=== PATIENT | male | born 1990 | race Caucasian/White ===

== ENCOUNTER 2021-12-02 00:30 | Inpatient (IN) | payer MEDICAID, OTHER ==
--- NOTE | 2021-12-02 01:04 | ED ---
General Adult HPI - General Chief complaint: Psychiatric Symptoms Stated complaint: Mental Health Time Seen by Provider: 12/02/21 00:34 Source: patient, police, EMS, RN notes reviewed, old records reviewed Mode of arrival: EMS Limitations: no limitations - History of Present Illness Initial comments: 30-year-old male presenting with suicide attempt. Patient had been feeling down and depressed, he been anxious and feeling suicidal. He cut his left arm. He was transported by local police and paramedics. He has been petitioned for psychiatric evaluation. He denies illicit drugs or alcohol. He states he has had multiple previous episodes of self-harm. He states his tetanus is up-to-date. - Related Data Allergies Allergy/AdvReac Type Severity Reaction Status Date / Time No Known Allergies Allergy Verified 12/02/21 00:53 Review of Systems ROS Statement: Those systems with pertinent positive or pertinent negative responses have been documented in the HPI. ROS Other: All systems not noted in ROS Statement are negative. Past Medical History Past Medical History: No Reported History History of Any Multi-Drug Resistant Organisms: None Reported Additional Past Surgical History / Comment(s): Pt has had multiple surgeries to repair arterial lacerations Past Psychological History: Anxiety, Bipolar Smoking Status: Current some day smoker Past Alcohol Use History: None Reported Past Drug Use History: Marijuana General Exam Limitations: no limitations General appearance: alert, in no apparent distress Head exam: Present: atraumatic, normocephalic Eye exam: Present: normal appearance, PERRL ENT exam: Present: normal exam Neck exam: Present: normal inspection Respiratory exam: Present: normal lung sounds bilaterally. Absent: respiratory distress, wheezes Cardiovascular Exam: Present: regular rate, normal rhythm GI/Abdominal exam: Present: soft. Absent: distended, tenderness Extremities exam: Present: normal capillary refill, other (Left arm, there is 2 separate lacerations in the antecubital fossa one measuring 3 cm one measuring 2 cm. No arterial hemorrhage. Distal pulses are intact.) Psychiatric exam: Present: depressed, suicidal ideation Course Vital Signs 12/02/21 00:36 Temperature 97.9 F Pulse Rate 57 L Respiratory 18 Rate O2 Sat by Pulse 97 Oximetry - Reevaluation(s) Reevaluation #1: 12/02/21 01:01 Patient cleared for EPS evaluation. Procedures - Laceration Laceration #1 Consent Obtained: verbal consent Site: upper extremity Size (cm): 3 Description: linear Depth: simple, single layer Anesthetic Used: lidocaine 1% Anesthesia Technique: local infiltration Amount (mls): 4 Pre-repair: wound explored, irrigated extensively, deep structures intact Type of Sutures: nylon Size of Sutures: 5-0 Number of Sutures: 3 Technique: simple, interrupted Patient Tolerated Procedure: well Laceration #2 Consent Obtained: verbal consent Indication: laceration Site: upper extremity Size (cm): 2 Description: linear Depth: simple, single layer Anesthetic Used: lidocaine 1% Anesthesia Technique: local infiltration Amount (mls): 3 Pre-repair: wound explored, irrigated extensively, deep structures intact Size of Sutures: 5-0 Number of Sutures: 2 Technique: simple, interrupted Medical Decision Making - Medical Decision Making 30-year-old male with suicide attempt, laceration to the left forearm. This is repaired in the emergency department. He was evaluated by EPS he had been petitioned. He is felt to require inpatient psychiatric evaluation and treatment. I did complete a clinical certification on this patient and do agree that inpatient is appropriate for him at this time. He will be admitted to this institution. - Lab Data Lab Results 12/02/21 Range/Units 03:08 Coronavirus (PCR) Not Detected (Not Detectd) Disposition Clinical Impression: Attempted suicide, Depression, Laceration Disposition: ADMITTED IP TO THIS [facility] Condition: Stable Is patient prescribed a controlled substance at d/c from ED?: No Referrals: None,Stated [Primary Care Provider] - 1-2 days Decision to Admit Reason: Admit from EC Decision Date: 12/02/21 Decision Time: 03:32
[2021-12-02] MEDS ORDERED: ACETAMINOPHEN TAB 325 MG TAB PO STA (01:46)
[2021-12-02] MEDS ORDERED: HALOPERIDOL LACTATE 5 MG/ML 1 ML VIAL IM PRN (04:52)
[2021-12-02] MEDS ORDERED: MAG HYDROX/AL HYDROX/SIMETH 30 ML CUP PO PRN (04:52)
[2021-12-02] MEDS ORDERED: MAGNESIUM HYDROXIDE 2,400 MG/10 ML CUP PO PRN (04:52)
[2021-12-02] MEDS ORDERED: LORazepam 1 MG TAB PO PRN (04:55)
[2021-12-02] MEDS ORDERED: LORazepam 2 MG/ML INJ IM PRN (04:55)
[2021-12-02] MEDS ORDERED: haloperidoL 5 MG TAB PO PRN (04:56)
[2021-12-02] MEDS: ACETAMINOPHEN TAB 325 MG TAB PO PRN (06:11)
--- NOTE | 2021-12-02 14:27 | P.HP ---
Psychiatric H&P - . H&P Date: 12/02/21 History & Physical: Allergies Allergy/AdvReac Type Severity Reaction Status Date / Time No Known Allergies Allergy Verified 12/02/21 00:53 Vital Signs Temp 97.5 F L 12/02/21 04:35 Pulse 52 L 12/02/21 04:35 Resp 16 12/02/21 04:35 BP 140/64 12/02/21 04:35 Pulse Ox 98 12/02/21 04:35 Intake & Output 12/01/21 12/02/21 12/02/21 18:59 06:59 18:59 Weight 89.358 kg Laboratory Last Values Coronavirus (PCR) Not Detected (Not Detectd) 12/02/21 03:08 12/02/21 14:20 IDENTIFYING DATA: Patient is a 30-year-old male, currently lives here on house. HPI: Patient presented to the hospital feeling depressed and suicidal and apparently had cuts on his left arm which were treated in the ER. Patient was admitted to the mental health unit for evaluation and treatment. Patient was admitted involuntarily on a petition and certificate. Apparently patient was making suicidal homicidal ideations and claiming he is feeling depressed. Patient was seen today wandering the hallways and agreeable to speak to clinical writer. He was tall, well-built and had several tattoos over his body including his head and face. Patient claims that he has been off of his medications including lithium and Effexor for the past 4 days. He claims that he was at leisure on [facility] a few days ago and "forgot my money phone and medications there" and states that no one was able to help him go and retrieve them when he got back to [facility]. He states that he was feeling hopeless overwhelmed and "stressed out". He states that he has a history of bipolar disorder which is diagnosed about 15 years ago. He also claims that he has anxiety. He states that he's been feeling depressed lately and having racing thoughts, possibly about harming himself or harming other people. He claims that he cut his left arm and has a history of cutting behavior. He claims that he recently got out of [facility] one week ago and was there for serving 9-1/2 years for [employer]. He states that he is currently on parole for 6 months. He states that his sleep is "on and off" and states that he feels irritable at times. He states that he does still have some mild suicidal thoughts however does not have any plan to harm himself in the hospital. He is denying any paranoia today. Patient denies any homicidal ideations intent or plan. At this time patient denies any auditory or visual hallucinations. Patient admits to using marijuana frequently, smokes cigarettes as well. No other recreational drug use. PAST PSYCHIATRIC HISTORY: Patient states that he has a history of bipolar disorder which was diagnosed 15 years ago. He also states he deals with ADHD and anxiety. He was previously on Effexor and lithium with unknown doses. He claims that he has been psychiatrically hospitalized several times including once at [facility] in [place] while he was an inmate. Patient denies any psychiatric outpatient follow-up. He claims that he has had several suicide attempts where he attempted to cut himself. PMH:denies ALLERGIES: as per EMR CHEMICAL DEPENDENCY HISTORY: as per HPI FAMILY PSYCHIATRIC/SUBSTANCE USE HISTORY: States that his father and grandfather both had depression and ADHD. SOCIAL HISTORY: Patient was born and raised in [place]. He states that he completed up to the 12th grade however did not complete his high school diploma. 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 He currently lives at [facility]. He states that he was released from [facility] one week ago for charges of [employer] and was serving 9-1/2 years. MENTAL STATUS EXAM: General Appearance: Patient appears to be called, well-built, multiple tattoos over his body including face and had, stated age is alert, directable, and attempts to cooperate. Patient appears to have fair hygiene and grooming. Behavior: Patient is seated without any agitated behavior. Irritable at times Speech: Patient's speech is fluent and nonpressured. Mood/Affect: Patient reports their mood is depressed and overwhelmed, affect is congruent and constricted. Suicidality/Homicidality: Patient denies having any homicidal ideation intent or plan. Mitts to mild suicidal ideations however no intent or plan. Perceptions: Patient denies any visual hallucinations and denies any auditory hallucinations Though content/process: Focused on his medications. Not endorsing any paranoia or delusions. Goal oriented. Memory and concentration: AOX3, grossly intact for the purposes of this session. Can spell "WORLD" backwards Judgment and insight: poor STRENGTHS/WEAKNESSES: strength is that patient is resilient. Weakness is that patient has poor judgment and is impulsive INTELLECT: average IMPRESSIONS: Bipolar disorder, current episode depressed Cannabis use disorder mild Nicotine dependence PLAN: -Patient is admitted under voluntary status to MHU for stabilization of psychiatric symptoms and safety. Patient has signed adult voluntary form and medication consent and is placed in patient's chart. -Medications : Will start patient on his home dose of lithium 300 mg daily +600 mg daily at bedtime for mood stabilization/suicidal thoughts, will restart Effexor however at a lower dose 75 mg daily for mood/anxiety. -Ativan and Haldol PRN for agitation/aggression -Patient was counselled on substance abuse and desired to cut back on use -Patient was informed of the risks, benefits and side effects of the medication and patient verbally consented to taking the medications. Patient signed med consent form and was placed in chart. -Internal Medicine consult to perform medical evaluation and physical. -NRT - nicotine patch -SW on board for discharge planning. Encourage patient to participate in groups to work on coping skills.
[2021-12-02] MEDS: LITHIUM CARBONATE 300 MG CAP PO SCH ×2 (14:43→21:16)
[2021-12-02] MEDS: VENLAFAXINE HCL ER 75 MG CAP PO SCH (14:43)
--- NOTE | 2021-12-03 00:10 | P.CONS ---
History of Present Illness - Reason for Consult Consult date: 12/02/21 - History of Present Illness Patient is a 30-year-old male, recently [facility] from [facility] who presented to the emergency room due to depression and suicidal ideation. The patient was admitted to the mental health unit where he was seen and evaluated. The patient reports that he has been struggling with his transition after being released. He denied any physical complaints. He reports taking no medications, and denied substance or tobacco use. Also denied alcohol use. Denied chest discomfort, shortness of breath, fever, chills, cough, nausea, vomiting, diarrhea. Review of systems: Pertinent positives and negatives as discussed in HPI, a complete review of systems was performed and all other systems are negative. Physical examination: General: non toxic, no distress, appears at stated age, normal weight Derm: no unusual rashes/lesions no unusual ecchymoses, warm, dry Head: atraumatic, normocephalic, symmetric Eyes: EOMI, no lid lag, anicteric sclera, pupils equal round reactive to light ENT: Nose and ears atraumatic, no thrush, no pharyngeal erythema Neck: No thyromegaly, no cervical lymphadenopathy, trachea midline, supple Mouth: no lip lesion, mucus membranes moist Cardiovascular: S1S2 reg, no murmur, positive posterior tibial pulse bilateral, no edema, capillary refill less than 2 seconds Lungs: CTA bilateral, no rhonchi, no rales , no accessory muscle use Abdominal: soft, nontender to palpation, no guarding, no appreciable organomegaly, normal bowel sounds Ext: no gross muscle atrophy, muscle strength 5 out of 5 in all 4 extremities grossly, no contractures, Neuro: CN II-XI grossly intact, light touch intact all 4 extremities, finger to nose within normal limits, Psych: Alert, oriented, appropriate affect Assessment/plan Depression and suicidal ideation -As per psychiatry Thank you for allowing us to participate in the care of this patient. We will follow peripherally. Do not hesitate to contact us with questions. Someone can be reached from the [facility] hospitalist group at all hours of the day at [phone]. Past Medical History Past Medical History: No Reported History History of Any Multi-Drug Resistant Organisms: None Reported Additional Past Surgical History / Comment(s): Pt has had multiple surgeries to repair arterial lacerations Past Anesthesia/Blood Transfusion Reactions: No Reported Reaction Smoking Status: Current some day smoker Medications and Allergies Allergies Allergy/AdvReac Type Severity Reaction Status Date / Time No Known Allergies Allergy Verified 12/02/21 00:53 Physical Exam Vitals: Vital Signs Temp Pulse Pulse Resp BP Pulse Ox 12/02/21 04:35 97.5 F L 52 L 16 140/64 98 12/02/21 00:36 97.9 F 57 L 18 97 Results Labs: Abnormal Lab Results - Last 24 Hours (Table) 12/02/21 Range/Units 11:42 Hemoglobin A1c 6.3 H (0.0-6.0) %
[2021-12-03 07:47] LABS: Basophils % (A) 1 %; Eosinophils # (A) 0.3 k/uL (0-0.7); Eosinophils % (A) 6 %; HCT 39.7 % (39.0-53.0); HGB 11.7 gm/dL (13.0-17.5); Hypochromasia Marked; Lymphocytes # (A) 2.2 k/uL (1.0-4.8); Lymphocytes % (A) 46 %; MCH 23.1 pg (25.0-35.0); MCHC 29.6 g/dL (31.0-37.0); MCV 77.9 fL (80.0-100.0); Mean Platelet Volume 8.6; Microcytosis Slight; Monocytes # (A) 0.3 k/uL (0-1.0); Monocytes % (A) 6 %; Neutrophils # (A) 1.9 k/uL (1.3-7.7); Neutrophils % (A) 38 %; Platelet Count 105 k/uL (150-450); RBC 5.09 m/uL (4.30-5.90); RDW 15.5 % (11.5-15.5); WBC 4.8 k/uL (3.8-10.6)
[2021-12-03 08:20] LABS: ALT 22 U/L (4-49); AST 48 U/L (17-59); African American GFR (CKD) >90 (>60 ml/min/1.73 sqM); Albumin 4.1 g/dL (3.5-5.0); Alkaline Phosphatase 71 U/L (38-126); Anion Gap 7 mmol/L; Blood Urea Nitrogen 13 mg/dL (9-20); Calcium 9.8 mg/dL (8.4-10.2); Carbon Dioxide 23 mmol/L (22-30); Chloride 109 mmol/L (98-107); Glucose 100 mg/dL (74-99); Non-African American GFR(CKD) >90 (>60 ml/min/1.73 sqM); Potassium 4.1 mmol/L (3.5-5.1); Sodium 139 mmol/L (137-145); Total Bilirubin 0.6 mg/dL (0.2-1.3)
[2021-12-03] MEDS: NICOTINE 14MG/24HR PATCH TRANSDERM SCH (09:57)
[2021-12-03] MEDS: VENLAFAXINE HCL ER 75 MG CAP PO SCH (09:57)
[2021-12-03] MEDS: LITHIUM CARBONATE 300 MG CAP PO SCH ×2 (09:57→20:58)
--- NOTE | 2021-12-03 13:10 | P.PN ---
Progress Note - Text Progress Note Date: 12/03/21 Interval History: Patient was seen lying in his bed this morning and was directable and agreeable to speak with publications writer in the office. Patient appears to have mild improvement in his hygiene and grooming today. He claims that he is doing a bit better in terms of his racing thoughts and claims that he is not feeling suicidal this morning. He states that he is dealing with some irritability and mood swings still. He claims that he feels a bit calmer with the lithium today. He continues to focus on the dosage of his Effexor and was requesting to have it increased to help his mood and anxiety. He spoke about discharge planning and continuing to be on parole. He states that he is not allowed back at your own house. He states that he has been going to some groups and participating as best as he can. He states that he had a difficult time sleeping initially and went to bed at 2 AM. He declined any medication for sleep At this time patient denies any suicidal or homical ideations, intent or plan. Patient denies any auditory, visual hallucinations and denies any paranoia or delusions. Patient denies any side effects from the medications and has been compliant with meds. Mental Status Exam: General Appearance: Patient appears to be called, well-built, multiple tattoos over his body including face and had, stated age is alert, directable, and attempts to cooperate. Patient appears to have fair hygiene and grooming. Behavior: Patient is seated without any agitated behavior. Less irritable today. Speech: Patient's speech is fluent and nonpressured. Mood/Affect: Patient reports their mood is improving mildly, affect is congruent and constricted. Suicidality/Homicidality: Patient denies having any homicidal ideation intent or plan. Denies any suicidal thoughts today. Perceptions: Patient denies any visual hallucinations and denies any auditory hallucinations Though content/process: Focused on his medications. Not endorsing any paranoia or delusions. Goal oriented. Memory and concentration: AOX3, grossly intact for the purposes of this session Judgment and insight: poor Assessment Bipolar disorder, current episode depressed Cannabis use disorder mild Nicotine dependence Plan: -Patient continues to meet criteria for inpatient psychiatric admission for s ymptom stabilization and safety. Patient has not signed adult voluntary form and medication consent and was placed in patient's chart. -Medications: Continue lithium 300 mg daily +600 mg daily at bedtime for mood stabilization/suicidal thoughts. Will order lithium level for morning. Increased Effexor to 150 mg daily for mood/anxiety -When necessary Ativan and Haldol for agitation/aggression. -NRT - nicotine patch -SW on board for discharge planning. Encouraged the patient to participate in milieu. Sw to coordinate with cheese factory worker from the senior care for pts discharge planning, likely be staying at a motel or hotel temporarily.
[2021-12-03] MEDS: ACETAMINOPHEN TAB 325 MG TAB PO PRN (21:02)
[2021-12-04] MEDS: VENLAFAXINE HCL ER 150 MG CAP PO SCH (09:05)
[2021-12-04] MEDS: NICOTINE 14MG/24HR PATCH TRANSDERM SCH (09:05)
[2021-12-04] MEDS: LITHIUM CARBONATE 300 MG CAP PO SCH ×2 (09:06→20:32)
--- NOTE | 2021-12-04 09:48 | P.PN ---
Progress Note - Text Progress Note Date: 12/04/21 Interval History: Patient was seen wandering the hallways this morning and was directable and ag reeable to speak with tag writer in the office. Patient appears to have mild improvement in his hygiene and grooming today. He appears to be more tractable today and cooperative during conversation. He states that the racing thoughts have been gradually improving. He states that the suicidal thoughts have been improving as well. He claims that he has been trying to go to groups and "staying positive". He claims that someone stole his phone leak [facility] however he claims that he got word that his medications were found. He states that "it's fine I don't really care at this point". He appears to have improvement in his irritability and impulse control. He states that he was able to sleep last night at around 1 AM "which is more normal for me". He states that he is able to sleep throughout the night. He was able to have his Effexor increased this morning. Claims of fair appetite. At this time patient denies any suicidal or homical ideations, intent or plan. Patient denies any auditory, visual hallucinations and denies any paranoia or delusions. Patient denies any side effects from the medications and has been compliant with meds. He states that he'll be speaking with his watch case polisher today over the phone about discharge planning. Mental Status Exam: General Appearance: Patient appears to be called, well-built, multiple tattoos over his body including face and had, stated age is alert, directable, and attempts to cooperate. Patient appears to have fair hygiene and grooming. Behavior: Patient is seated without any agitated behavior. Less irritable today. Speech: Patient's speech is fluent and nonpressured. Mood/Affect: Patient reports their mood is improving mildly, affect is congruent and constricted. Suicidality/Homicidality: Patient denies having any homicidal ideation intent or plan. Denies any suicidal thoughts today. Perceptions: Patient denies any visual hallucinations and denies any auditory hallucinations Though content/process: Focused on his medications. Not endorsing any paranoia or delusions. Goal oriented. Memory and concentration: AOX3, grossly intact for the purposes of this session Judgment and insight: Improving mildly Assessment: Bipolar disorder, current episode depressed Cannabis use disorder mild Nicotine dependence Plan: -Patient continues to meet criteria for inpatient psychiatric admission for symptom stabilization and safety. Patient has not signed adult voluntary form and medication consent and was placed in patient's chart. -Medications: Continue lithium 300 mg daily +600 mg daily at bedtime for mood stabilization/suicidal thoughts. lithium level for morning. Effexor to 150 mg daily for mood/anxiety -When necessary Ativan and Haldol for agitation/aggression. -NRT - nicotine patch -SW on board for discharge planning. Encouraged the patient to participate in milieu. SW to coordinate with watch case polisher from the halfway for pts discharge planning, likely be staying at a motel or hotel temporarily. likely discharge tomorrow.
[2021-12-05] MEDS: NICOTINE 14MG/24HR PATCH TRANSDERM SCH (08:32)
[2021-12-05] MEDS: VENLAFAXINE HCL ER 150 MG CAP PO SCH (08:33)
[2021-12-05] MEDS: LITHIUM CARBONATE 300 MG CAP PO SCH (08:33)
[2021-12-05 10:10] VITALS: PULSE 62; RESP 16; TEMP 97.8
[2021-12-05 10:11] VITALS: BP 114/66
--- NOTE | 2021-12-05 11:26 | P.DS ---
Providers Date of admission: 12/02/21 04:32 Expected date of discharge: 12/05/21 Attending physician: Wenceslao Hendricks MD Consults: 12/02/21 04:52 Consult Physician Routine Consulting Provider: Philip Physician Consult Reason/Comments: H&P Do you want consulting provider notified?: Yes Primary care physician: Stated None - Discharge Diagnosis(es) (1) Bipolar disorder current episode depressed Current Visit: Yes Status: Acute Priority: High (2) Cannabis use disorder, mild, abuse Current Visit: Yes Status: Acute Priority: Medium (3) Nicotine dependence Current Visit: Yes Status: Acute Priority: Low Hospital Course: Admission HPI: Admission note was completed by check writer "Patient is a 30-year-old male, currently lives here on house. Patient presented to the hospital feeling depressed and suicidal and apparently had cuts on his left arm which were treated in the ER. Patient was admitted to the mental health unit for evaluation and treatment. Patient was admitted involuntarily on a petition and certificate. Apparently patient was making suicidal homicidal ideations and claiming he is feeling depressed. Patient was seen today wandering the hallways and agreeable to speak to check writer. He was tall, well-built and had several tattoos over his body including his head and face. Patient claims that he has been off of his medications including lithium and Effexor for the past 4 days. He claims that he was at leisure on [facility] a few days ago and "forgot my money phone and medications there" and states that no one was able to help him go and retrieve them when he got back to [facility]. He states that he was feeling hopeless overwhelmed and "stressed out". He states that he has a history of bipolar disorder which is diagnosed about 15 years ago. He also claims that he has anxiety. He states that he's been feeling depressed lately a nd having racing thoughts, possibly about harming himself or harming other people. He claims that he cut his left arm and has a history of cutting behavior. He claims that he recently got out of detention one week ago and was there for serving 9-1/2 years for [employer]. He states that he is currently on parole for 6 months. He states that his sleep is "on and off" and states that he feels irritable at times. He states that he does still have some mild suicidal thoughts however does not have any plan to harm himself in the hospital. He is denying any paranoia today. Patient denies any homicidal ideations intent or plan. At this time patient denies any auditory or visual hallucinations. Patient admits to using marijuana frequently, smokes cigarettes as well. No other recreational drug use." Hospital course: Upon admission to the unit patient was directable and agreeable to commence treatment and signed adult voluntary form. Patient got along well with other patients on the unit and followed unit protocol. Patient was compliant with the medications and denied any side effects throughout hospital course. Patient was started on lithium 300 mg daily +600 mg daily at bedtime for mood stabilization/suicidal thoughts. Patient was also started on Effexor and titrated up to dose of 150 mg daily for mood/anxiety. Patient spoke of his stressors and engaged in therapy both group and individual. Patient was also seen by medical team for history and physical exam. Throughout the course of the hospitalization patient gradually improved with regards to mood, anxiety, sleep and became more future oriented with improved insight and judgment. On the day of discharge patient denied any suicidal or homicidal ideations intent or plan denied any auditory or visual hallucinations. Patient endorsed wanting to live for his health and family. The patient denied any access to guns or weapons. Patient denied any paranoia and did not endorse any delusions. Patient does not have a significant history of substance abuse and was counseled on abstaining from all substances including alcohol and marijuana. Patient was also counseled on the medications and need for regular compliance and was encouraged to follow-up with their outpatient appointment for mental health and also for primary care. Prior to discharge social sciences professor will reach out to patient's stepmother, where patient wants to be discharged due to ensure safety and coordiante discharge planning. Patient will be following up with [facility] as an outpatient. Mental status exam: General Appearance: Patient appears to be tall, multiple tattoos, stated age is alert, pleasant, and cooperative. Patient is in no acute distress and has improved hygiene and grooming Behavior: Patient is calmly seated without any agitated behavior. Speech: Patient's speech is fluent and nonpressured. Mood/Affect: Patient reports their mood is "better", affect is congruent and euthymic. Suicidality/Homicidality: Patient denies having any suicidal or homicidal ideation intent or plan. Perceptions: Patient denies any auditory or visual hallucinations. Though content/process: There is no evidence of any delusional thought content a nd thought process is linear and goal-directed. more future oriented Memory and concentration: AOX3, grossly intact for the purposes of this session. Can spell "WORLD" backwards correctly. Judgment and insight: improved with guarded prognosis Impression: Bipolar disorder, current episode depressed cannabis use disorder mild Nicotine dependence Plan: -Continue with discharge today as patient has improved and stabilized psychiatrically and is not currently an imminent threat to himself and/or others. -Continue medications: Penasco 300 mg daily +600 mg daily at bedtime for mood stabilization/suicidal thoughts. Penasco level on day of discharge was 0.8. Effexor 150 mg daily for mood/anxiety. -Patient was counseled on the need for medication compliance and appropriate follow-up at mental health and also primary care for medical issues. Patient verbalized understanding and agreed. -Social work to arrange for and conduct family meeting with step mother to ensure safety upon discharge and answer any questions/concerns. Social work also to arrange for patients follow up appointments with [facility] for psychiatric care along with follow up with primary care provider. Patient will need another lithiium level drawn in 1-2 weeks post discharge -Patient counseled on abstaining from recreational drugs and marijuana and alcohol. Was informed/educated on the adverse effects on their physical and mental health. Patient verbally agreed and understood. -Patient was instructed to return to the hospital or seek immediate medical care if their psychiatric or medical symptoms do worsen or reoccur. Allergies Allergy/AdvReac Type Severity Reaction Status Date / Time No Known Allergies Allergy Verified 12/02/21 00:53 Laboratory Results WBC 4.8 k/uL (3.8-10.6) 12/03/21 07:24 RBC 5.09 m/uL (4.30-5.90) 12/03/21 07:24 Hgb 11.7 gm/dL (13.0-17.5) L 12/03/21 07:24 Hct 39.7 % (39.0-53.0) 12/03/21 07:24 MCV 77.9 fL (80.0-100.0) L 12/03/21 07:24 MCH 23.1 pg (25.0-35.0) L 12/03/21 07:24 MCHC 29.6 g/dL (31.0-37.0) L 12/03/21 07:24 RDW 15.5 % (11.5-15.5) 12/03/21 07:24 Plt Count 105 k/uL (150-450) L 12/03/21 07:24 MPV 8.6 12/03/21 07:24 Neutrophils % 38 % 12/03/21 07:24 Lymphocytes % 46 % 12/03/21 07:24 Monocytes % 6 % 12/03/21 07:24 Eosinophils % 6 % 12/03/21 07:24 Basophils % 1 % 12/03/21 07:24 Neutrophils # 1.9 k/uL (1.3-7.7) 12/03/21 07:24 Lymphocytes # 2.2 k/uL (1.0-4.8) 12/03/21 07:24 Monocytes # 0.3 k/uL (0-1.0) 12/03/21 07:24 Eosinophils # 0.3 k/uL (0-0.7) 12/03/21 07:24 Basophils # 0.0 k/uL (0-0.2) 12/03/21 07:24 Hypochromasia Marked 12/03/21 07:24 Microcytosis Slight 12/03/21 07:24 Sodium 139 mmol/L (137-145) 12/03/21 07:24 Potassium 4.1 mmol/L (3.5-5.1) 12/03/21 07:24 Chloride 109 mmol/L (98-107) H 12/03/21 07:24 Carbon Dioxide 23 mmol/L (22-30) 12/03/21 07:24 Anion Gap 7 mmol/L 12/03/21 07:24 BUN 13 mg/dL (9-20) 12/03/21 07:24 Creatinine 0.90 mg/dL (0.66-1.25) 12/03/21 07:24 Est GFR (CKD-EPI)AfAm >90 (>60 ml/min/1.73 sqM) 12/03/21 07:24 Est GFR (CKD-EPI)NonAf >90 (>60 ml/min/1.73 sqM) 12/03/21 07:24 Glucose 100 mg/dL (74-99) H 12/03/21 07:[address] Glu mg/dL 134 12/02/21 11:42 Hemoglobin A1c 6.3 % (0.0-6.0) H 12/02/21 11:42 Calcium 9.8 mg/dL (8.4-10.2) 12/03/21 07:24 Total Bilirubin 0.6 mg/dL (0.2-1.3) 12/03/21 07:24 AST 48 U/L (17-59) 12/03/21 07:24 ALT 22 U/L (4-49) 12/03/21 07:24 Alkaline Phosphatase 71 U/L (38-126) 12/03/21 07:24 Total Protein 7.0 g/dL (6.3-8.2) 12/03/21 07:24 Albumin 4.1 g/dL (3.5-5.0) 12/03/21 07:24 TSH 2.860 mIU/L (0.465-4.680) 12/03/21 07:24 Penasco 0.8 mmol/L 12/05/21 10:05 Coronavirus (PCR) Not Detected (Not Detectd) 12/02/21 03:08 Vital Signs Temp 97.8 F 12/05/21 10:07 Pulse 62 12/05/21 10:07 Resp 16 12/05/21 10:07 BP 114/66 12/05/21 08:10 Pulse Ox 96 12/05/21 10:07 Patient Condition at Discharge: Stable Plan - Discharge Summary Discharge Rx Participant: No New Discharge Prescriptions: New Penasco Carbonate 300 mg PO DAILY 30 Days cap Venlafaxine HCl ER [Effexor XR] 150 mg PO DAILY 30 Days Nicotine 14Mg/24Hr Patch [Habitrol] 1 patch TRANSDERM DAILY 14 Days patch Penasco Carbonate 600 mg PO HS 30 Days cap Discharge Medication List Penasco Carbonate 300 mg PO DAILY 30 Days cap 12/05/21 [Rx] Penasco Carbonate 600 mg PO HS 30 Days cap 12/05/21 [Rx] Nicotine 14Mg/24Hr Patch [Habitrol] 1 patch TRANSDERM DAILY 14 Days patch 12/05/21 [Rx] Venlafaxine HCl ER [Effexor XR] 150 mg PO DAILY 30 Days 12/05/21 [Rx] Follow up Appointment(s)/Referral(s): None,Stated [Primary Care Provider] - 1-2 days Activity/Diet/Wound Care/Special Instructions: Activity and diet as tolerated. Avoid the use of street drugs and alcohol. Take all medications as prescribed. When you are in need of refills on your medications please contact your medical provider and/or outpatient psychiatrist to have this done. Please go to scheduled outpatient appointment for aftercare treatment. If symptoms return or become worse, call the crisis line at and/or go to the nearest emergency room for evaluation Discharge Disposition: HOME SELF-CARE
== END 2021-12-05 14:13 | disposition home or self-care (01) | DRG 885 ==
LOC: EC 00:30 → 3MHU 04:32
PROVIDERS: ADMIT Psychiatry & Neurology Psychiatry; ATTEND Psychiatry & Neurology Psychiatry
PROC: 0HQEXZZ Repair Left Lower Arm Skin, External Approach (ICD-10-PCS; principal; 2021-12-02)
DX: F31.30 Bipolar disorder, current episode depressed, mild or moderate severity, unspecified (principal); R45.851 Suicidal ideations; R45.850 Homicidal ideations; Z20.822 Contact with and (suspected) exposure to COVID-19; F12.10 Cannabis abuse, uncomplicated; S51.812A Laceration without foreign body of left forearm, initial encounter; F41.9 Anxiety disorder, unspecified; F90.9 Attention-deficit hyperactivity disorder, unspecified type; F17.210 Nicotine dependence, cigarettes, uncomplicated; Z65.3 Problems related to other legal circumstances; Z91.52 Personal history of nonsuicidal self-harm; Z81.8 Family history of other mental and behavioral disorders; Z71.41 Alcohol abuse counseling and surveillance of alcoholic; Z71.51 Drug abuse counseling and surveillance of drug abuser
CPT/HCPCS: 12002; 80053; 80178; 82075; 83036; 84443; 85025; 87635; 99285